=== PATIENT | male | born 2000 | race Caucasian/White ===

== ENCOUNTER 2019-08-13 22:13 | Emergency (ER) | payer OTHER ==
[~2019-08-13] VITALS: Ht 167.6 cm; Wt 81.8 kg
[2019-08-14] MEDS ORDERED: GI COCKTAIL 50ML BTL(HYOSCYAMINE/MAALOX/LIDOCAINE VISCOUS)(1:3:1) PO ONE (00:45)
[2019-08-14] MEDS ORDERED: ONDANSETRON 4 MG ORAL DISINTEGRATING TAB (Q0162 PER 1MG) PO ONE (00:45)
[2019-08-14] MEDS ORDERED: AUGMENTIN 875 MG TAB PO ONE (00:45)
[2019-08-14] MEDS ORDERED: AUGM875T28 PO (01:07)
[2019-08-14 01:15] VITALS: BP 122/82
== END 2019-08-14 01:18 | disposition home or self-care (01) ==
LOC: M ED 22:13
DX: S61.431A Puncture wound without foreign body of right hand, initial encounter (principal); W55.01XA Bitten by cat, initial encounter; Y92.410 Unspecified street and highway as the place of occurrence of the external cause; R11.2 Nausea with vomiting, unspecified; R09.89 Other specified symptoms and signs involving the circulatory and respiratory systems; Z88.1 Allergy status to other antibiotic agents; Z88.2 Allergy status to sulfonamides
CPT/HCPCS: 99283; Q0162

== ENCOUNTER → 2020-11-04 | Outpatient (CLI) | payer OTHER ==
[~2020-11-04] MED LIST: AUGM875T28 PO; ISOVUE-300 61% 50ML VIAL As Ordered ONE; LIDOCAINE 1% MDV 20ML VIAL As Ordered ONE; TRIAMCINOLONE ACETONIDE SUSP 40 MG/ML VIAL (J3301) As Ordered ONE
--- NOTE | 2020-11-05 13:15 | REP ---
INDICATION: ISCHIOCAPSULAR LIGAMENT SPRAIN LT HIP. COMPARISON: None. TECHNIQUE: The procedure was performed under the direct supervision of Dr. De La Fuente. The benefits and risks including but not limited to pain infection and bleeding and anaphylaxis were explained to the patient and informed consent was obtained. The left femoral neck was localized using fluoroscopic guidance. The skin was prepped and draped in a sterile fashion. 1% lidocaine was used as a local anesthetic. Using fluoroscopic guidance, and last image hold technology, a 22-gauge spinal needle was inserted and advanced to the femoral neck. 0.5 ml of Isovue-300 was injected to verify placement. Ten ml of a solution containing 9 ml of 1% Xylocaine and 1 mL of Kenalog 40 mg was injected. The needle was then removed. The patient tolerated the procedure well and there were no immediate complications. Less than 6 seconds of fluoro time was utilized for this procedure. FINDINGS: None IMPRESSION: Fluoro guidance for left hip injection. <Electronically signed by Aldair Marley > 11/04/20 1795 <Electronically signed by Chu De La Fuente > 11/05/20 1313
== END ==
LOC: M RADPRO 10:15
PROVIDERS: ATTEND Physician Assistant Surgical
DX: S73.122D Ischiocapsular ligament sprain of left hip, subsequent encounter (principal)
CPT/HCPCS: 20610; 77002; J3301; Q9967

== ENCOUNTER → 2020-12-16 | Outpatient (CLI) | payer OTHER ==
[~2020-12-16] MED LIST changes: +CLAR1TAB13 PO; -ISOVUE-300 61% 50ML VIAL As Ordered ONE; -LIDOCAINE 1% MDV 20ML VIAL As Ordered ONE; +LUNE2TAB23 PO; +MUCI60TA7 PO; +QUET50TA4 PO; -TRIAMCINOLONE ACETONIDE SUSP 40 MG/ML VIAL (J3301) As Ordered ONE
[2020-12-16 14:07] LABS: BASO % 0.7 % (0.0-1.0); EOS # 0.2 10^3/uL (0.0-0.5); EOS % 3.5 % (0.0-3.0); HEMATOCRIT 42.1 % (42.0-52.0); HEMOGLOBIN 14.5 g/dl (13.5-17.5); LYMPH # 2.2 10^3/uL (1.5-5.0); LYMPH % 36.3 % (24.0-44.0); MEAN CORPUSCULAR HEMOGLOBIN 29.6 pg (27.0-33.0); MEAN CORPUSCULAR HGB CONC 34.4 g/dl (32.0-36.5); MEAN CORPUSCULAR VOLUME 85.9 fl (80.0-96.0); MONO # 0.5 10^3/uL (0.0-0.8); MONO % 7.7 % (2.0-8.0); NEUTROPHILS # 3.1 10^3/uL (1.5-8.5); NEUTROPHILS % 51.5 % (36.0-66.0); PLATELET COUNT, AUTOMATED 176 10^3/uL (150-450)
[2020-12-16 14:59] LABS: ALBUMIN 4.1 GM/DL (3.2-5.2); ALT/SGPT 26 U/L (12-78); BILIRUBIN,DIRECT 0.1 MG/DL (0.0-0.2); BILIRUBIN,TOTAL 0.4 MG/DL (0.2-1.0); BLOOD UREA NITROGEN 10 MG/DL (7-18); CALCIUM LEVEL 8.7 MG/DL (8.5-10.1); CARBON DIOXIDE LEVEL 26 MEQ/L (21-32); CHLORIDE LEVEL 105 MEQ/L (98-107); CREATININE FOR GFR 0.95 MG/DL (0.70-1.30); FOLATE 16.5 NG/ML; GLOMERULAR FILTRATION RATE > 60.0 (>60); GLUCOSE, FASTING 88 MG/DL (70-100); POTASSIUM SERUM 3.8 MEQ/L (3.5-5.1); SODIUM LEVEL 138 MEQ/L (136-145); TOTAL PROTEIN 7.2 GM/DL (6.4-8.2); VITAMIN B12 LEVEL 414 PG/ML
[2020-12-16 15:13] LABS: ERYTHROCYTE SEDIMENTATION RATE 3 mm/hr (0-15)
[2020-12-18 07:10] LABS: IGASUB2 174.8 mg/dL (73.2-301.2); IGASUB3 17.9 mg/dL (13.4-97.9); IgA SERUM (part of Subclasses) 222 mg/dL (90-386); TISSUE TRANSGLUTAMINASE IgA <2 U/mL (0-3)
== END ==
LOC: M LAB 13:23
PROVIDERS: ATTEND Internal Medicine Gastroenterology
DX: R10.9 Unspecified abdominal pain (principal)

== ENCOUNTER → 2020-12-16 | Outpatient (REF) | payer OTHER ==
[~2020-12-16] MED LIST changes: -CLAR1TAB13 PO; -LUNE2TAB23 PO; -MUCI60TA7 PO; -QUET50TA4 PO
== END ==
LOC: M LAB REF 13:39
PROVIDERS: ATTEND Internal Medicine Gastroenterology
DX: R19.7 Diarrhea, unspecified (principal); R10.9 Unspecified abdominal pain

== ENCOUNTER 2021-03-06 06:29 | Day surgery (SDC) | payer OTHER ==
[~2021-03-06] VITALS: Ht 167.6 cm; Wt 90.2 kg
[~2021-03-06 06:29] MED LIST changes: +CLAR1TAB13 PO; +NS 1,000 ML IV ONE; +QUET50TA4 PO
[2021-03-06] MEDS ORDERED: SIMETHICONE 40MG/0.6ML DROPS 30ML As Ordered ONE (06:44)
[2021-03-06] MEDS ORDERED: propofoL 200 MG/20 ML VIAL As Ordered ONE (07:37)
--- NOTE | 2021-03-06 08:08 | ROOR ---
Patient Name: Chiki Serrano Procedure Date: 03/06/2021 7:28 AM Date of : 2000 Age: 21 Room: [facility] Gender: Male Note Status: Finalized Procedure: Colonoscopy Indications: Chronic diarrhea Providers: Tai Marion MD Referring MD: GERRY GODDARD MD Requesting Provider: Medicines: Monitored Anesthesia Care Complications: No immediate complications. Procedure: Pre-Anesthesia Assessment: - Prior to the procedure, a History and Physical was performed, and patient medications and allergies were reviewed. The patient is competent. The risks and benefits of the procedure and the sedation options and risks were discussed with the patient. All questions were answered and informed consent was obtained. Patient identification and proposed procedure were verified by the physician, the nurse and the anesthesiologist in the procedure room. Mental Status Examination: alert and oriented. Airway Examination: normal oropharyngeal airway and neck mobility. Respiratory Examination: clear to auscultation. CV Examination: normal. Prophylactic Antibiotics: The patient does not require prophylactic antibiotics. Prior Anticoagulants: The patient has taken no previous anticoagulant or antiplatelet agents. ASA Grade Assessment: II - A patient with mild systemic disease. After reviewing the risks and benefits, the patient was deemed in satisfactory condition to undergo the procedure. The anesthesia plan was to use monitored anesthesia care (MAC). Immediately prior to administration of medications, the patient was re-assessed for adequacy to receive sedatives. The heart rate, respiratory rate, oxygen saturations, blood pressure, adequacy of pulmonary ventilation, and response to care were monitored throughout the procedure. The physical status of the patient was re-assessed after the procedure. The Colonoscope was introduced through the anus and advanced to the terminal ileum, with identification of the appendiceal orifice and IC valve. The colonoscopy was performed without difficulty. The patient tolerated the procedure well. The quality of the bowel preparation was good. The terminal ileum, ileocecal valve, appendiceal orifice, and rectum were photographed. Scope insertion time was 2 minutes. Scope withdrawal time was 9 minutes. The total duration of the procedure was 12 minutes. Findings: The perianal and digital rectal examinations were normal. The terminal ileum appeared normal. Two sessile polyps were found in the ascending colon. The polyps were 5 to 8 mm in size. These polyps were removed with a cold snare. Resection and retrieval were complete. Verification of patient identification for the specimen was done by the physician and nurse using the patient's name, date and medical record number. Estimated blood loss was minimal. Normal mucosa was found in the entire colon. Biopsies for histology were taken with a cold forceps from the right colon, left colon, transverse colon and rectosigmoid colon for evaluation of microscopic colitis. Non-bleeding external and internal hemorrhoids were found during retroflexion. The hemorrhoids were small. Impression: - The examined portion of the ileum was normal. - Two 5 to 8 mm polyps in the ascending colon, removed with a cold snare. Resected and retrieved. - Normal mucosa in the entire examined colon. Biopsied. - Non-bleeding external and internal hemorrhoids. Recommendation: - Patient has a contact number available for emergencies. The signs and symptoms of potential delayed complications were discussed with the patient. Return to normal activities tomorrow. Written discharge instructions were provided to the patient. - High fiber diet. - Continue present medications. - Await pathology results. - Repeat colonoscopy in 5-10 years for surveillance based on pathology results. - Telephone GI clinic for pathology results in 2 weeks. - Return to GI clinic if persistent symptoms or new symptoms. - Return to primary care physician. Procedure Code(s): --- Professional --- 19962, Colonoscopy, flexible; with removal of tumor(s), polyp(s), or other lesion(s) by snare technique 22546, 59, Colonoscopy, flexible; with biopsy, single or multiple Diagnosis Code(s): --- Professional --- K64.8, Other hemorrhoids K63.5, Polyp of colon K52.9, Noninfective gastroenteritis and colitis, unspecified CPT copyright 2019 [employer]. All rights reserved. The codes documented in this report are preliminary and upon orthopedic coder review may be revised to meet current compliance requirements. Tai Marion MD Tai Marion MD 03/06/2021 8:08:13 AM Electronically signed by Tai Marion MD Number of Addenda: 0 Note Initiated On: 03/06/2021 7:28 AM Estimated Blood Loss: Estimated blood loss was minimal.
[2021-03-06 08:19] VITALS: BP 124/54
== END 2021-03-06 08:21 | disposition home or self-care (01) ==
LOC: M OPP 06:29
PROVIDERS: ATTEND Internal Medicine Gastroenterology
DX: K63.5 Polyp of colon (principal); K52.9 Noninfective gastroenteritis and colitis, unspecified; K64.8 Other hemorrhoids; Z79.899 Other long term (current) drug therapy; Z88.1 Allergy status to other antibiotic agents; Z88.2 Allergy status to sulfonamides

== ENCOUNTER 2021-05-01 09:52 | Emergency (ER) | payer OTHER ==
[~2021-05-01] VITALS: Ht 167.6 cm; Wt 91.2 kg
[~2021-05-01 09:52] MED LIST changes: -NS 1,000 ML IV ONE
[2021-05-01] MEDS ORDERED: LUNE2TAB23 PO (09:59)
--- OUTSIDE RECORDS SUMMARY | 2021-05-01 10:04 | CCD | Continuity of Care Document ---
Author Author Software [employer]ware [employer], [employer] Organization Unknown Address Unknown Phone Unavailable Care Team Providers Care Patient Financial Specialist Name Role Phone Salena Jerry Unavailable Problems No Problem Information Available Allergies and Adverse Reactions No Allergy Information Available Medications No Medication Information Available Social History No Social History Information Available Tobacco smoking consumption unknown Male Results No Known Results No Result Information Available Vital Signs No Vital Observation Information Available Advance Directives HIPAA - Patient specified Unknown. Payers [facility] Number: [address] [facility] [address] [place] tel: CECILLE GARCIA [id number] [place] [address] tel:
--- OUTSIDE RECORDS SUMMARY | 2021-05-01 10:04 | CCD ---
Author Author [facility] Organization [facility] Address Unknown Phone Unavailable Care Team Providers Care Assistant Professor Of Education Name Role Phone MARILYN BROWNING Unavailable Unavailable HAYNES, E HAI PA Unavailable Unavailable HAYNES, E HAI PA Unavailable Unavailable HAYNES, E HAI PA Unavailable Unavailable HAYNES, E HAI PA Unavailable Unavailable HAYNES, E HAI PA Unavailable Unavailable HAYNES, E HAI PA Unavailable Unavailable HAYNES, E HAI PA Unavailable Unavailable HAYNES, E HAI PA Unavailable Unavailable HAYNES, E HAI PA Unavailable Unavailable HAYNES, E HAI PA Unavailable Unavailable HAYNES, E HAI PA Unavailable Unavailable HAYNES, E HAI PA Unavailable Unavailable HAYNES, E HAI PA Unavailable Unavailable HAYNES, E HAI PA Unavailable Unavailable HAYNES, E HAI PA Unavailable Unavailable HAYNES, E HAI PA Unavailable Unavailable HAYNES, E HAI PA Unavailable Unavailable HAYNES, E HAI PA Unavailable Unavailable Yuval CAN MD Unavailable Unavailable Yuval CAN MD Unavailable Unavailable Yuval CAN MD Unavailable Unavailable Yuval CAN MD Unavailable Unavailable Yuval CAN MD Unavailable Unavailable Yuval CAN MD Unavailable Unavailable Yuval CAN MD Unavailable Unavailable Yuval CAN MD Unavailable Unavailable Yuval CAN MD Unavailable Unavailable Yuval CAN MD Unavailable Unavailable Yuval CAN MD Unavailable Unavailable Yuval CAN MD Unavailable Unavailable Yuval CAN MD Unavailable Unavailable Yuval CAN MD Unavailable Unavailable Yuval CAN MD Unavailable Unavailable ADAIRRALYuval Martin MD Unavailable Unavailable ADAIRRALA K BECK BRENNAN Unavailable Unavailable ADAIRRALYuval Martin MD Unavailable Unavailable ADAIRRALYuval Martin MD Unavailable Unavailable ADAIRRALAYuval MD Unavailable Unavailable ADAIRRALA K BECK BRENNAN Unavailable Unavailable ADAIRRALA K BECK BRENNAN Unavailable Unavailable ADAIRRALA K BECK BRENNAN Unavailable Unavailable ADAIRRALA K BECK BRENNAN Unavailable Unavailable ADAIRRALA K BECK BRENNAN Unavailable Unavailable ADAIRRALA K BECK BRENNAN Unavailable Unavailable ADAIRRALA K BECK BRENNAN Unavailable Unavailable ADAIRRALA K BECK BRENNAN Unavailable Unavailable JUAN JOSÉ K BECK BRENNAN Unavailable Unavailable JUAN JOSÉ K BECK BRENNAN Unavailable Unavailable Yuval CAN MD Unavailable Unavailable JUAN JOSÉ K BECK BRENNAN Unavailable Unavailable Yuval CAN MD Unavailable Unavailable MALLILIA, DIANDRA Unavailable Unavailable Patti Covington MD Unavailable Unavailable Patti Covington MD Unavailable Unavailable Patti Covington MD Unavailable Unavailable Patti Covington MD Unavailable Unavailable Patti Covington MD Unavailable Unavailable Patti Covington MD Unavailable Unavailable Re-disclosure Warning The records that you are about to access may contain information from federally-assisted alcohol or drug abuse programs. If such information is present, then the following federally mandated warning applies: This information has been disclosed to you from records protected by federal confidentiality rules (42 CFR part 2). The federal rules prohibit you from making any further disclosure of this information unless further disclosure is expressly permitted by the written consent of the person to whom it pertains or as otherwise permitted by 42 CFR part 2. A general authorization for the release of medical or other information is NOT sufficient for this purpose. The Federal rules restrict any use of the information to criminally investigate or prosecute any alcohol or drug abuse patient.The records that you are about to access may contain highly sensitive health information, the redisclosure of which is protected by Article 27-F of the [facility] Public Health law. If you continue you may have access to information: Regarding HIV / AIDS; Provided by facilities licensed or operated by the [facility] Office of Mental Health; or Provided by the [facility] Office for People With Developmental Disabilities. If such information is present, then the following [facility] mandated warning applies: This information has been disclosed to you from confidential records which are protected by state law. State law prohibits you from making any further disclosure of this information without the specific written consent of the person to whom it pertains, or as otherwise permitted by law. Any unauthorized further disclosure in violation of state law may result in a fine or skilled nursing sentence or both. A general authorization for the release of medical or other information is NOT sufficient authorization for further disc losure. Allergies and Adverse Reactions Type Description Substance Reaction Status Data Source(s ) Drug allergy AZITHROMYCIN AZITHROMYCIN [facility] Propensity to adverse reactions SULFA (sulfonamide) SULFA (sulfonam [place]) [facility] Encounters Encounter Providers Location Date Indications Data Source(s ) Outpatient Attender: ALEXANDER BROWNING 04/16/2021 02:42:43 PM [facility] Outpatient Attender: ALEXANDER BROWNING 021 02:48:38 PM EDT - 03/12/2021 11:42:00 AM [facility] Patient discharged. Outpatient Attender: DIANDRA MURPHY 04:19:04 PM EDT - 02/06/2021 06:00:00 AM [facility] Patient discharged. Outpatient Attender: BECK Keys/Basil/Arias wilde/Allison 01/21/2021 08:30:00 AM EDT [facility] ([facility], ) Outpatient Attender: Carlos Covington MD 01/05 06:15:00 AM EDT - 01/05/2021 11:29:00 AM T [facility] Patient discharged. Outpatient Attender: Carlos Covington MD 12/30 06:23:16 AM EDT - 12/31/2020 08:50:00 AM [facility] Patient discharged. Outpatient Attender: BECK Keys/Basil/Arias wilde/Allison 12/09/2020 09:20:00 AM EDT [facility] ([facility], ) Outpatient Attender: HAI RODRIGUES 12:16:00 PM EDT - 10/23/2020 01:16:00 PM EDT [facility] Patient discharged. Immunizations Vaccine Date Status Description Data Source(s) COVID-19 VACCINE Moderna 10/17/2020 12:00:00 AM EDT completed NYIS Vaccine Series Complete: YESThis Data wa s Submitted to [facility] Via [employer]. COVID-19 VACCINE Moderna 09/19/2020 12:00:00 AM EDT completed NYSIIS Vaccine Series Complete: NOThis Data was Submitted to [facility] Via [employer]. Medications Medication Brand Name Start Date Product Form Dose Route Admi nistrative Instructions Pharmacy Instructions Status Indications Reaction Description Data Source(s) Bisacodyl 5 MG Delayed Release Oral Tablet [Dulcolax] Dulcol ax 01/21/2021 12:00:00 AM EDT active M [facility] ([facility], ) Suprep Bowel Prep Kit Suprep Bowel Prep Kit 01/21/2021 12:00:00 AM EDT active [facility] ([facility], ) Dicyclomine Hydrochloride 20 MG Oral Tablet Dicyclomine HCL 01/21/2021 12:00:00 AM EDT ORAL active [facility] ([facility], ) Insurance Providers Payer name Policy type / Coverage type Policy ID Covered republican ID Covered republican's relationship to rob Policy Rob Plan Information [employer] [id number] SP [id number] [employer] - O/P [id number] 18 [id number] Problems, Conditions, and Diagnoses Code Display Name Description Problem Type Effective Dates Data Source(s) Z5321 Procedure and treatment not carried out due to patient leaving prior to being seen by health care provider Procedure and treatment not carried out due to patient leaving prior to being seen by health care provider Diagnosis 03/12/2021 11:42:00 AM EDT [facility] G4700 Insomnia, unspecified Insomnia, unspecified Diagnosis 02/05/2021 08:30:00 PM EDT [facility] [id number] Snoring Snoring Diagnosis 02/05/2021 08:30:00 PM ED T [facility] 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, right shoulder P rimary osteoarthritis, right shoulder Diagnosis 01/05/2021 06:15:00 AM EDT [facility] M7541 Impingement syndrome of right shoulder I mpingement syndrome of right shoulder Diagnosis 01/05/2021 06:15:00 AM EDT [facility] [id number] Encounter for other preprocedural examin ation Encounter for other preprocedural examination Diagnosis 12/31/2020 08:05:00 AM EDT [facility] 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, 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, right shoulder Diagnosis 10/23/2020 12:16:00 PM E DT [facility] 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, 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, right hip Diagnosis 10/23/2020 12:16:00 PM EDT [facility] Surgeries/Procedures Procedure Description Date Indications Data Source(s) Colonoscopy Flexible Proximal To Splenic Flexure W/Biopsy Si ngle/ 03/06/2021 12:00:00 AM EDT [facility] ([facility]) Colonoscopy W/ Poly 03/06/2021 12:00:00 AM EDT [facility] ([facility]) OFFICE OUTPATIENT VISIT 25 MINUTES 01/21/2021 12:00:00 AM EDT [facility] ([facility]) OFFICE OUTPATIENT NEW 45 MINUTES 12/09/2020 12:00:00 A M EDT [facility]) Results ID Date Data Source [id number] 03/06/2021 07:50:00 AM EDT [facility]) Name Value Range Interpretation Code Description Data Veronica rce(s) Supporting Document(s) Surgical pathology study Laboratory test result [facility] ([facility]) FINAL DIAGNOSIS A - Colon, random biopsies: Fragments of benign colonic mucosa with a few prominent lymphoid aggregates of lamina propria. No inflammatory activity or evidence for microscopic colitis is noted. B - Colon, polyps, polypectomy: Hyperplastic polyp fragments. 03/09/2021 - 1157 CLINICAL DIAGNOSIS Chronic diarrhea, R/O irritable bowel disease 03/06/2021 - 1325 GROSS DIAGNOSIS A - Received in formalin labeled "random colon biopsies" is a 0.7 x 0.2 x 0.2 cm. aggregate of mucosal fragments. All in one. B - Received in formalin labeled "colon polyps" is a 0.6 x 0.3 x 0.2 cm. aggregate of mucosal fragments. All in one. 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 He had exam and clinical findings consistent with subacromial impingementand AC joint arthrosis. He had completed conservative measures and requested to avoid injectionsat all cost. He requested surgical intervention, and was counseled on the risks of surgery to include,but not limited to infection, bleeding, damage to local s tructures, pain, stiffness, need for furthersurgery. He was able to sign informed consent. All questions were answered to his full satisfaction.PRE-OP DIAGNOSIS: 1. Right shoulder subacromial impingement. 2. AC joint arthrosis.POST-OP DIAGNOSIS: 1. Right shoulder subacromial impingement. 2. AC joint arthrosis.MATERIAL FORWARDED: None.DESCRIPTION OF THE FINDINGS:Patient had an adequate decompressed subacromial space and then a distal clavicle resection wasdone all arthroscopic with a total of approximately 10 mm resection as measured directly throughthe scope.INFECTION CLASSIFICATION: I, clean.ESTIMATED BLOOD LOSS: 5 cc.OPERATION PERFORMED:Right shoulder arthroscopy with subacromial decompression and arthroscopic distal clavicleresection, and also examination under anesthesia.DESCRIPTION OF OPERATION: [address] [place] [address] OPERATIVE SUMMARYNAME: RADHA ODEN DATE OF : 2000ATTENDING PHYS: Carlos Covington MD DATE: 01/05/21 MR#: [id number] patient was met in the pre-op holding area, where the correct name, identity, operative site,laterality, and procedure were verified to be correct without discrepancies. The operative site wasmarked by myself. Patient received pre-operative block by Anesthesia. He was then taken to theoperating room by nursing and anesthesia providers, placed supine on the operating room table. Allbony prominences were padded in the standard fashion. He underwent general anesthetic andplacement of advanced airway without complication. He was then transitioned to the beach chairposition in standard fashion. The right upper extremity was cleaned with peroxide, and examinationunder anesthesia was completed. The patient's right upper extremity was then prepped and drapedin the usual sterile fashion. Time-out was then called, the patient's name, identity, operative site,laterality, and procedure were verified to be correct without discrepancies. We also confirmedantibiotic administration with weight-based Ancef within one hour of incision as well.The bony landmarks were marked and planned incisions were marked for the arthroscopy portals.Standard diagnostic arthroscopy of the glenohumeral joint was completed with the use of aposterior portal and a standard midline portal. The structures of the joint were unremarkable. Itransitioned then to the subacromial space. I performed a standard subacromial decompression withaccessory lateral portal. Once adequate decompression was completed, I was able to visualize thebursal side of the rotator cuff, which was intact.The AC joint was exposed using the Thermoablator and the sucker shaver. Once it was adequatelyexposed, a 4 mm barrel lana to resect no more than 10 mm of distal clavicle maintaining theposterior superior joint capsule. Adequate decompression of the acromioclavicular joint wasachieved, and the arthroscope was then removed from the shoulder. The incisions were then closedand sterile dressings applied. The patient was placed into a sling. He was then aroused fromanesthesia, having tolerated the procedure well without any complication.Post-operatively he will remain in a sling for 1-2 weeks or so, and then start slowly transitioning toincrease activities per the arthroscopic distal clavicle resection protocol. He received pre-opantibiotics. No post-op antibiotics were indicated. No post-op DVT chemoprophylaxis wasindicated. Patient will return to see us in 10-14 days for a wound check and will start with physicaltherapy before then. [address] [place] [address] OPERATIVE SUMMARYNAME: RADHA ODEN DATE OF : 2000ATTENDING PHYS: Carlos Covington MD DATE: 01/05/21 MR#: [id number]: Carlos Covington MD 01/05/21 09:23DT: NKECHI 01/06/21 07 :18DS: Carlos Covington MD 01/16/21 14:26 3 Name Value Range Interpretation Code Description Data Veronica rce(s) Supporting Document(s) ID Date Data Source [id number] 12/31/2020 11:49:00 AM EDT [facility] Name Value Range Interpretation Code Description Data Veronica rce(s) Supporting Document(s) SARS coronavirus 2 RNA Not Detected [facility] [place] This lab was ordered by [facility] and reported by [facility]. ID Date Data Source [id number] 12/16/2020 01:33:00 PM EDT [facility] ([facility], ) Name Value Range Interpretation Code Description Data Veronica rce(s) Supporting Document(s) C reactive protein [Mass/volume] in Serum or Plasma by High sensitivity method 0.30 mg/dL 0.00-0.30 Normal (applies to non-numeric results) [facility] ([facility], ) Erythrocyte sedimentation rate by Westergren method 3 mm/hr 0-15 Normal (applies to non-numeric results) [facility]) ID Date Data Source [id number] 12/16/2020 01:33:00 PM EDT [facility] ([facility]) Name Value Range Interpretation Code Description Data Veronica rce(s) Supporting Document(s) Folate 16.5 ng/mL Normal (applies to non-numeric resul ts) [facility] ([facility], ) FOLATE NORMAL RANGE NORMAL GREATER THAN 5.4 NG/ML INDETERMINATE 3.4-5.4 NG/ML DEFICIENT LESS THAN 3.4 NG/ML Vitamin B12 Level 414 pg/mL Normal (applies to non-numeri c results) [facility] ([facility]) VITAMIN B12 NORMAL RANGE NORMAL 247 - 911 PG/ML INDETERMINATE 211 - 246 PG/ML DEFICIENT LESS THAN 211 PG/ML ID Date Data Source [id number] 12/16/2020 01:33:00 PM EDT [facility] ([facility]) Name Value Range Interpretation Code Description Data Veronica rce(s) Supporting Document(s) IgA Serum (part of Subclasses) 222 mg/dL 90-386 N ormal (applies to non-numeric results) [facility] ([facility]) Igasub3 17.9 mg/dL 13.4-97.9 Normal (applies to non-numeric resul ts) [facility]) Igasub2 174.8 mg/dL 73.2-301.2 Normal (applies to non-numeric resu lts) [facility]) ID Date Data Source [id number] 12/16/2020 01:33:00 PM EDT [facility] ([facility]) Name Value Range Interpretation Code Description Data Veronica rce(s) Supporting Document(s) Tissue transglutaminase IgA Ab [Units/volume] in Serum Labor atory test result 0-3 Normal (applies to non-numeric results) [facility] ([facility]) Negative 0 - 3 Weak Positive 4 - 10 Positive >10 . Tissue Transglutaminase (tTG) has been identified as the endomysial antigen. Studies have demonstr- ated that endomysial IgA antibodies have over 99% specificity for gluten sensitive enteropathy. Performed at: RN - [facility] [address] [id number] Milling/Polishing Operator: Rosalie Cruz MD, Phone: [phone] Performed at: - [facility] [address] [id number] Milling/Polishing Operator: Carrington Quintanilla MD, Phone: [phone] ID Date Data Source [id number] 12/16/2020 01:33:00 PM EDT [facility] ([facility]) Name Value Range Interpretation Code Description Data Veronica rce(s) Supporting Document(s) Ast/Sgot 17 U/L 7-37 Normal (applies to non-numeric resul ts) [facility] ([facility]) Alt/SGPT 26 U/L 12-78 Normal (applies to non-numeric resul ts) [facility]) Alkaline Phosphatase 58 U/L 45-117 Normal (applies to non-num jessica results) [facility]) Bilirubin,Direct 0.1 mg/dL 0.0-0.2 Normal (applies to non-numeric results) [facility]) Bilirubin,Total 0.4 mg/dL 0.2-1.0 Normal (applies to non-numeric results) [facility]) Albumin 4.1 GM/DL 3.2-5.2 Normal (applies to non-numeric resul ts) [facility]) Total Protein 7.2 GM/DL 6.4-8.2 Normal (applies to non-numeric re sults) [facility]) Albumin/Globulin Ratio 1.3 Normal (applies to non-n umeric results) [facility]) ID Date Data Source [id number] 12/16/2020 01:33:[address] [facility]) Name Value Range Interpretation Code Description Data Veronica rce(s) Supporting Document(s) Glucose, Fasting 88 mg/dL 70-100 Normal (applies to non-numeric results) [facility] ([facility]) Blood Urea Nitrogen 10 mg/dL 7-18 Normal (applies to non-nume shannon results) [facility]) Creatinine For GFR 0.95 mg/dL 0.70-1.30 Normal (applies to non -numeric results) [facility] ([facility]) Sodium Level 138 meq/L 136-145 Normal (applies to non-numeric res ults) [facility]) Glomerular Filtration Rate Laboratory test result Normal (applies to non- numeric results) [facility]) <content>Units are mL/min/1.73 m2</content>
<content></content>
<content>Chronic Kidney Disease Staging per NKF:</content>
<content></content>
<content>Stage I & II GFR >=60 Normal to Mildly Decreased</content>
<content>Stage III GFR 30- 59 Moderately Decreased</content>
<content>Stage IV GFR 15-29 Severely Decreased</content>
<content>Stage V GFR <15 Very Little GFR Left</content>
<content>ESRD GFR <15 on SITE INTERPRETER</content>
<content></content> Potassium Serum 3.8 meq/L 3.5-5.1 Normal (applies to non-numeric results) [facility]) Carbon Dioxide Level 26 meq/L 21-32 Normal (applies to non-num jessica results) [facility]) Chloride Level 105 meq/L 98-107 Normal (applies to non-numeric r esults) [facility]) Anion Gap 7 meq/L 8-16 Below low normal [facility] ( [facility]) Calcium Level 8.7 mg/dL 8.5-10.1 Normal (applies to non-numeric re sults) [facility]) ID Date Data Source [id number] 12/16/2020 01:33:[address] [facility]) Name Value Range Interpretation Code Description Data Veronica rce(s) Supporting Document(s) White Blood Count 6.0 10 4.0-10.0 Normal (applies to non-numeri c results) [facility]) Red Blood Count 4.90 10 4.30-6.10 Normal (applies to non-numeric results) [facility]) Hematocrit 42.1 % 42.0-52.0 Normal (applies to non-numeric resul ts) [facility]) Hemoglobin 14.5 g/dL 13.5-17.5 Normal (applies to non-numeric resul ts) [facility]) Mean Corpuscular Volume 85.9 fl 80.0-96.0 Normal ( applies to non-numeric results) [facility] ) Mean Corpuscular HGB Conc 34.4 g/dL 32.0-36.5 Normal (applies to non-numeric results) [facility]) Mean Corpuscular Hemoglobin 29.6 pg 27.0-33.0 Norm al (applies to non-numeric results) [facility] ([facility]) Red Cell Distribution Width 12.0 % 11.5-14.5 Norm al (applies to non-numeric results) [facility]) Neutrophils % 51.5 % 36.0-66.0 Normal (applies to non-numeric re sults) [facility]) Platelet Count, Automated 176 10 150-450 Normal (applies to non-numeric results) [facility]) Eos % 3.5 % 0.0-3.0 Above high normal [facility] ([facility]) [place] % 7.7 % 2.0-8.0 Normal (applies to non-numeric resul ts) [facility]) Lymph % 36.3 % 24.0-44.0 Normal (applies to non-numeric resul ts) [facility]) Immature Granulocyte % 0.3 % 0-3.0 Normal (applies to non-n umeric results) [facility]) Baso % 0.7 % 0.0-1.0 Normal (applies to non-numeric resul ts) [facility]) Nucleated Red Blood Cell % 0.0 % 0-0 Normal (applies to n on-numeric results) [facility]) Neutrophils # 3.1 10 1.5-8.5 Normal (applies to non-numeric re sults) [facility]) Lymph # 2.2 10 1.5-5.0 Normal (applies to non-numeric resul ts) [facility]) [place] # 0.5 10 0.0-0.8 Normal (applies to non-numeric resul ts) [facility]) Eos # 0.2 10 0.0-0.5 Normal (applies to non-numeric resul ts) [facility] ([facility]) Baso # 0.0 10 0.0-0.2 Normal (applies to non-numeric resul ts) [facility]) ID Date Data Source [id number] 12/16/2020 12:00:[address] [facility]) Name Value Range Interpretation Code Description Data Veronica rce(s) Supporting Document(s) Gastrointestinal (GI) Panel Laboratory test result [facility] ([facility]) This Gastrointestinal PCR Panel detects the following bacteria, parasites and viruses: Campylobacter (jejuni, coli and upsaliensis), Clostridium difficile (toxin A/B), Plesiomonas shigelloides, Salmonella, Yersinia enterocolitica, Vibrio (parahaemolyticus, vulnificus and cholerae), Vibrio clolerae, Enteroaggregative E. coli (EAEC), Enteropathogenis E. coli (EPEC), Enterotoxigenic E. coli (ETEC) it/st, Shiga-like producing E. coli (STEC) stx1/stc2, E.coli O157, Shigella/Enteroinvasive E. coli (EIEC), Cryptosporidium, Cyclospora cayetanensis, Entamoeba histolytica, Giardia lamblia, Adenovirus F 40/41, Astrovirus, Norovirus GI/GII, Rotavirus A and Sapovirus (I, II, IV, V). One negative specimen does not rule out the possibility of a parasitic infection. NEGATIVE by MULTIPLEXED NUCLEIC ACID PCR ID Date Data Source [id number] 12/16/2020 12:00:00 PM EDT [facility] [place] Name Value Range Interpretation Code Description Data Veronica rce(s) Supporting Document(s) Fats Neutral Laboratory test result Normal (applies to non -numeric results) [facility] ([facility]) <content>Normal (<60 Droplets/HPF)</cont ent>
<content></content> Fats Total Laboratory test result Normal (applies to non-n umeric results) [facility] ([facility]) <content>Normal (<100 Droplets/HPF)</con tent>
<content></content> ID Date Data Source [id number] 12/16/2020 12:00:00 PM EDT [facility] Name Value Range Interpretation Code Description Data Veronica rce(s) Supporting Document(s) Lactoferrin [Presence] in Stool by Immunoassay Laboratory test r esult Abnormal (applies to non-numeric results) [facility] ([facility]) Calprotectin [Mass/mass] in Stool 122 ug/g 0-120 Above high no rmal [facility] ([facility]) <content>Concentration Interpretatio n Follow-Up</content>
<content><16 - 50 ug/g Normal None</content>
<content>>50 -120 ug/g Borderline Re-evaluate in 4-6 weeks</content>
<content>>120 ug/g Abnormal Repeat as clinically</content>
<content>indicated</content>
<content></content> Helicobacter pylori Ag [Presence] in Stool Laboratory test resul t Normal (applies to non-numeric results) [facility] Performed at: [facility] [address] [id number] Milling/Polishing Operator: Rosalie Cruz MD, Phone: [phone] Performed at: [facility] [address] [id number] Milling/Polishing Operator: Carrington Quintanilla MD, Phone: [phone] Elastase.pancreatic [Mass/mass] in Stool Laboratory test result Normal (applies to non-numeric results) [facility] <content>Result Units: ug Elast./g</cont ent>
<content>Severe Pancreatic Insufficiency: <100</content>
<content>Moderate Pancreatic Insufficiency: 100 - 200</content>
<content>Normal: >200</content>
<content></content> ID Date Data Source [id number] 10/24/2020 10:30:00 [place] [address] PHONE: [phone] FAX: [phone] Name .................. : RADHA ODEN Acct Number.................. : [id number] ROOM. ................. : MR Number ................... : [id number] Stay type ............. : O/P Discharge Date......... ... : 10/23/20 Admit Date ......... : 10/23/20 Admit Phys .................... : DALLAS IVEY Date of ....... : 2000 Family Phys ................... : UNKNOWN CO Phone .................. : [phone] Age ................................ : 20 Film# .................. .:[id number] Sex ................................. : M Unsigned transcriptions are preliminary reports and do not represent a medical or legal document INJECTION FOR SHOULDER ARTHRO [id number] COMPLETE:10/23/20 09:58 KBO 73323 Reason for Exam: R SHOULDER PAIN SHOULDER 1 VIEW RT [id number] COMPLETE:10/23/20 09:58 KBO 84183 Reason for Exam: R SHOULDER PAIN FLUOROSCOPIC EXAMINATION OF THE RIGHT SHOULDER FOR ARTHROGRAM: FINDINGS: The cell liner film shows no acute findings. PROCEDURE: The benefits and risks of the examination were discussed with the patient. The patient has given informed consent for the procedure. A time out was performed confirming the right shoulder is the proper shoulder for today's examination. The skin surface was marked using fluoroscopic guidance. The skin was prepped and dressed in normal sterile fashion. Superficial and deep Lidocaine administration was performed with a 25-gauge needle. A 22- gauge spinal needle was then placed and advanced under fluoroscopic guidance. The needle was passed into the joint space at which time iodinated contrast was administered to confirm proper placement. Approximately 5 cc of iodinated contrast was administered. Once the proper placement was confirmed, approximately 7 cc of 1:200 Gadolinium solution was administered. The needle was then removed. The skin was cleansed and bandaged. No complications were experienced during the procedure. Fluoroscopy time is 3 seconds and 3 images are obtained. Examination dictated by LILIA Conn. Examination was reviewed with Ras Askew MD, radiologist at the time of this dictation. Page [address] 2 [place] [address] PHONE: [phone] FAX: [phone] Name .......... ........ : RADHA ODEN Acct Number.................. : [id number] ROOM. ................. : Number ................... : [id number] Stay type ............. : O/P Discharge Date......... ... : 10/23/20 Admit Date ......... : 10/23/20 Admit Phys .................... : DALLAS IVEY Date of ....... : 2000 Family Phys ................... : UNKNOWN CO Phone .................. : [phone] Age ................................ : 20 Film# .................. .:[id number] Sex ................................. : M Unsigned transcriptions are preliminary reports and do not represent a medical or legal document INJECTION FOR SHOULDER ARTHRO [id number] COMPLETE:10/23/20 09:58 KBO 28588 Reason for Exam: R SHOULDER PAIN SHOULDER 1 [address] RT [id number] COMPLETE:10/23/20 09:58 KBO 61208 Reason for Exam: R SHOULDER PAIN Electronically Reviewed and Signed By Ras Askew MD , 10/24/20 10:31, AML Transcribe Initials: SHANAE , Transcribe Date: 10/24/20 00:47, Dictation Date: Copy for: DALLAS VALLES Copy for: [address] [place] [address] REC Page 2 of 2 Name Value Range Interpretation Code Description Data Veronica rce(s) Supporting Document(s) ID Date Data Source [id number] 10/24/2020 10:29:00 AM EDT [facility] [address] [place] [address] PHONE: [phone] FAX: [phone] Name .................. : RADHA ODEN Acct Number.................. : [id number] ROOM. ................. : Number ................... : [id number] Stay type ............. : O/P Discharge Date......... ... : Admit Date ......... : Admit Phys .................... : DALLAS IVEY Date of ....... : 2000 Family Phys ................... : UNKNOWN CO Phone .................. : [phone] Age ................................ : 20 Film# .................. .:[id number] Sex ................................. : M Unsigned transcriptions are preliminary reports and do not represent a medical or legal document MRI UPPER EXT JOINT W CONT RT [id number] COMPLETE:10/23/20 09:11 50513 Reason for Exam: R SHOUL ARELIS PAIN MRI OF THE RIGHT SHOULDER WITH CONTRAST: TECHNIQUE: Multisequence, multiplanar MRI of the right shoulder is obtained following fluoroscopic-guided contrast arthrography. COMPARISON: None available. FINDINGS: There is increased signal in the distal supraspinatus muscle difficult to further evaluate on the current study as this study is performed for evaluation of labral tears. Consider full diagnostic imaging if clinically warranted. There is no full thickness tear of the rotator cuff tendons. There does appear to be increased signal throughout the subscapularis tendon, which appears to be related to atrophy but again, consider full diagnostic imaging if clinically warranted. There is a small tear of the superior posterior glenoid labrum. The anterior superior glenoid labrum appears intact. The biceps anchor does appear to be intact. IMPRESSION: Findings consistent with a small tear of the posterior superior glenoid labrum. Apparent atrophy of the subscapularis tendon. Consider full diagnostic imaging of the shoulder if clinically warranted. Electronically Reviewed and Signed By Ras Askew MD , 10/24/20 10:29, AML Transcribe Initials: SHANAE , Transcribe Date: 10/23/20 11:35, Dictation Date: Copy for: DALLAS VALLES Copy for: [address] [place] [address] REC Page 1 of 1 Name Value Range Interpretation Code Description Data Veronica rce(s) Supporting Document(s) ID Date Data Source [id number] 10/24/2020 10:30:00 AM EDT [facility] [address] [place] [address] PHONE: [phone] FAX: [phone] Name .................. : RADHA ODEN Acct Number.................. : [id number] ROOM. ................. : MR Number ................... : [id number] Stay type ............. : O/P Discharge Date......... ... : 10/23/20 Admit Date ......... : 10/23/20 Admit Phys .................... : DALLAS IVEY Date of ....... : 2000 Family Phys ................... : UNKNOWN CO Phone .................. : [phone] Age ................................ : 20 Film# .................. .:[id number] Sex ................................. : M Unsigned transcriptions are preliminary reports and do not represent a medical or legal document INJECTION FOR SHOULDER ARTHRO [id number] COMPLETE:10/23/20 09:58 KBO 28040 Reason for Exam: R SHOULDER PAIN SHOULDER 1 VIEW RT [id number] COMPLETE:10/23/20 09:58 KBO 33116 Reason for Exam: R SHOULDER PAIN FLUOROSCOPIC EXAMINATION OF THE RIGHT SHOULDER FOR ARTHROGRAM: FINDINGS: The cell liner film shows no acute findings. PROCEDURE: The benefits and risks of the examination were discussed with the patient. The patient has given informed consent for the procedure. A time out was performed confirming the right shoulder is the proper shoulder for today's examination. The skin surface was marked using fluoroscopic guidance. The skin was prepped and dressed in normal sterile fashion. Superficial and deep Lidocaine administration was performed with a 25-gauge needle. A 22- gauge spinal needle was then placed and advanced under fluoroscopic guidance. The needle was passed into the joint space at which time iodinated contrast was administered to confirm proper placement. Approximately 5 cc of iodinated contrast was administered. Once the proper placement was confirmed, approximately 7 cc of 1:200 Gadolinium solution was administered. The needle was then removed. The skin was cleansed and bandaged. No complications were experienced during the procedure. Fluoroscopy time is 3 seconds and 3 images are obtained. Examination dictated by LILIA Conn. Examination was reviewed with Ras Askew MD, radiologist at the time of this dictation. [address] [place] [address] PHONE: [phone] FAX: [phone] Name .......... ........ : RADHA ODEN Acct Number.................. : [id number] ROOM. ................. : MR Number ................... : [id number] Stay type ............. : O/P Discharge Date......... ... : 10/23/20 Admit Date ......... : 10/23/20 Admit Phys .................... : DALLAS IVEY Date of ....... : 2000 Family Phys ................... : UNKNOWN CO Phone .................. : [phone] Age ................................ : 20 Film# .................. .:[id number] Sex ................................. : M Unsigned transcriptions are preliminary reports and do not represent a medical or legal document INJECTION FOR SHOULDER ARTHRO [id number] COMPLETE:10/23/20 09:58 KBO 36705 Reason for Exam: R SHOULDER PAIN SHOULDER 1 VIEW RT [id number] COMPLETE:10/23/20 09:58 KBO 31504 Reason for Exam: R SHOULDER PAIN Electronically Reviewed and Signed By Ras Askew MD , 10/24/20 10:31, AML Transcribe Initials: DZ , Transcribe Date: 10/24/20 00:47, Dictation Date: Copy for: DALLAS VALLES Copy for: [facility] REC Page 2 of 2 Name Value Range Interpretation Code Description Data Veronica rce(s) Supporting Document(s) ID Date Data Source [id number] 08/25/2020 10:03:00 AM EDT [facility] Name Value Range Interpretation Code Description Data Veronica rce(s) Supporting Document(s) SARS coronavirus 2 RNA Not Detected [facility] This lab was ordered by [facility] and reported by [facility]. Procedure Social History No Information Vital Signs ID Date Data Source UNK Name Value Range Interpretation Code Description Data Source(s) Body weight 86.184 kg 86.184 kg [facility] ([facility]) Body surface area Derived from formula 1.96 m2 1.96 m2 [facility]) Diastolic blood pressure 74 mm[Hg] 74 mm[Hg] [facility] ([facility]) Systolic blood pressure 132 mm[Hg] 132 mm[Hg] [facility] Body height 66 [in_i] 66 [in_i] [facility] ([facility]) 5'6" Body weight 190.00 [lb_av] 190.00 [lb_av] [facility] ([facility]) Body mass index (BMI) [Ratio] 30.7 kg/m2 30.7 k g/m2 [facility] ([facility]) [place] body weight 142 [lb_av] 142 [lb_av] [facility] ([facility]) [place] body weight 142 [lb_av] 142 [lb_av] [facility] ([facility]) Systolic blood pressure 132 mm[Hg] 132 mm[Hg] [facility] Body mass index (BMI) [Ratio] 30.7 kg/m2 30.7 k g/m2 [facility] ([facility]) Body surface area Derived from formula 1.96 m2 1.96 m2 [facility] ([facility]) Diastolic blood pressure 74 mm[Hg] 74 mm[Hg] [facility] ([facility]) Body weight 86.184 kg 86.184 kg [facility] ([facility]) Body height 66 [in_i] 66 [in_i] [facility] ([facility]) 5'6" Body weight 190.00 [lb_av] 190.00 [lb_av] [facility] ([facility]) ID Date Data Source [id number] 02/12/2021 02:24:54 PM EDT [facility] Name Value Range Interpretation Code Description Data Source(s) WEIGHT RECORDED 190.00 pounds 190.00 pounds [facility] Height 66 Inches 066 Inches [facility]
--- OUTSIDE RECORDS SUMMARY | 2021-05-01 10:04 | CCD | Continuity of Care Document ---
Author Author Chiki CAN M.D. Organization Unknown Address [address] [facility] [facility], [address] [place] [address] Phone [phone] Care Team Providers Care Utility Technician Name Role Phone Bernabe Blanca AUTM [phone] Problems Description No Information Available Social History Type Date Description Comments Sex Unknown ETOH Use drinks on weekends Tobacco Use Start: Unknown Vape-1pod q2d Allergies and adverse reactions Active Allergies Criticality Reaction | Severity Comments Date Sulfa Unable to assess criticality 12/09/2020 Erythromycin Unable to assess criticality 01/21/2021 Medications Active Medications SIG Qnty Indications Ordering Provide r Date Dicyclomine HCL 20mg Tablets take 1 tablet by mouth 2 to 3 times daily, take atleast 15 minutes before meals (for diarrhea and abdominal cramps) 90tabs R19.7 Tai Can M.D. 01/21/2021 Suprep Bowel Prep Kit 17.5-3.13-1.6GM/177ML Solution use as directed for the colonoscopy prep aration. ( if not fully covered by insurance, please fill gavilyte script). 354ml R19.7 Tai Can M.D. 01/21/[address] take 4 tablets together as per bowel preparation instructions. 4tabs R19.7 Tai Can M.D. 01/21/2021 Claritin qd Unknown Prozac qd Unknown Omeprazole 40mg Capsules DR 1 by mouth every day Unknown Immunizations Description No Information Available Vital Signs Date Vital Result Comment 01/21/2021 9:07am BP Systolic 132 mmHg BP Diastolic 74 mmHg Height 66 inches 5'6" Weight 190.00 lb BMI (Body Mass Index) 30.7 kg/m2 [place] Body Weight 142 lb Weight 86.184 kg BSA (Body Surface Area) 1.96 m2 12/09/2020 10:09am BP Systolic 132 mmHg BP Diastolic 74 mmHg Height 66 inches 5'6" Weight 190.00 lb BMI (Body Mass Index) 30.7 kg/m2 [place] Body Weight 142 lb Weight 86.184 kg BSA (Body Surface Area) 1.96 m2 Results Test Acquired Date Facility Test Result H/L Range Note Laboratory test finding 03/06/2021 [facility] [address] [place] [address] [phone] Pathology Request For Service (SEE NOTE) 1 CBC With Differential 12/16/2020 [facility] [address] [place] [address] [phone] White Blood Count 6.0 10 Normal 4.0-10.0 Red Blood Count 4.90 10 Normal 4.30-6.10 Hemoglobin 14.5 g/dL Normal 13.5-17.5 Hematocrit 42.1 % Normal 42.0-52.0 Mean Corpuscular Volume 85.9 fl Normal 80.0-96.0 Mean Corpuscular Hemoglobin 29.6 pg Normal 27.0-33.0 Mean Corpuscular HGB Conc 34.4 g/dL Normal 32.0-36.5 Red Cell Distribution Width 12.0 % Normal 11.5-14.5 Platelet Count, Automated 176 10 Normal 150-450 Neutrophils % 51.5 % Normal 36.0-66.0 Lymph % 36.3 % Normal 24.0-44.0 [place] % 7.7 % Normal 2.0-8.0 Eos % 3.5 % High 0.0-3.0 Baso % 0.7 % Normal 0.0-1.0 Immature Granulocyte % 0.3 % Normal 0-3.0 Nucleated Red Blood Cell % 0.0 % Normal 0-0 Neutrophils # 3.1 10 Normal 1.5-8.5 Lymph # 2.2 10 Normal 1.5-5.0 [place] # 0.5 10 Normal 0.0-0.8 Eos # 0.2 10 Normal 0.0-0.5 Baso # 0.0 10 Normal 0.0-0.2 Basic Metabolic Profile 12/16/2020 [facility] [address] [place] [address] [phone] Glucose, Fasting 88 mg/dL Normal 70-100 Blood Urea Nitrogen 10 mg/dL Normal 7-18 Creatinine For GFR 0.95 mg/dL Normal 0.70-1.30 Glomerular Filtration Rate > 60.0 Normal >60 2 Sodium Level 138 mEq/L Normal 136-145 Potassium Serum 3.8 mEq/L Normal 3.5-5.1 Chloride Level 105 mEq/L Normal 98-107 Carbon Dioxide Level 26 mEq/L Normal 21-32 Anion Gap 7 mEq/L Low 8-16 Calcium Level 8.7 mg/dL Normal 8.5-10.1 Liver Profile 12/16/2020 [facility] [address] [place] [address] [phone] Ast/Sgot 17 U/L Normal 7-37 Alt/SGPT 26 U/L Normal 12-78 Alkaline Phosphatase 58 U/L Normal 45-117 Bilirubin,Total 0.4 mg/dL Normal 0.2-1.0 Bilirubin,Direct 0.1 mg/dL Normal 0.0-0.2 Total Protein 7.2 GM/DL Normal 6.4-8.2 Albumin 4.1 GM/DL Normal 3.2-5.2 Albumin/Globulin Ratio 1.3 Normal Laboratory test finding 12/16/2020 [facility] [address] [place] [address] [phone] Tissue Transglutaminase IgA <2 U/mL Normal 0-3 3 Iga Subclasses 12/16/2020 [facility] [address] [place] [address] [phone] IgA Serum (part of Subclasses) 222 mg/dL Normal 9 0-386 Igasub2 174.8 mg/dL Normal 73.2-301.2 Igasub3 17.9 mg/dL Normal 13.4-97.9 Vitamin B12 & Folate 12/16/2020 [facility] [address] [place] [address] [phone] Vitamin B12 Level 414 pg/mL Normal 4 Folate 16.5 NG/ML Normal 5 Laboratory test finding 12/16/2020 [facility] [address] [place] [address] [phone] Erythrocyte Sedimentation Rate 3 mm/hr Normal 0 -15 C Reactive Protein Quantitativ 0.30 mg/dL Normal 0.00-0.30 Laboratory test finding 12/16/2020 [facility] [address] [place] [address] [phone] Stool Lactoferrin-polys by Ica POSITIVE Abnormal 6 Calprotectin Stool 122 ug/g High 0-120 7 H Pylori Stool Antigen Negative Normal Negative 8 Pancreatic Elastase Stool >500 Normal >200 9 Fat Fecal Qualitative 12/16/2020 [facility] [address] [place] [address] [phone] Fats Neutral Normal Normal . 10 Fats Total Normal Normal . 11 Gastrointestinal (GI) Panel 12/16/2020 [facility] [address] [place] [address] [phone] Gastrointestinal (GI) Panel This Gastrointes <SEE NOTE > 12 1 FINAL DIAGNOSIS A - Colon, random biopsies: Fragments of benign colonic mucosa with a few prominent lymphoid aggregates of lamina propria. No inflammatory activity or evidence for microscopic colitis is noted. B - Colon, polyps, polypectomy: Hyperplastic polyp fragments. 03/09/2021 - 1157 CLINICAL DIAGNOSIS Chronic diarrhea, R/O irritable bowel disease 03/06/2021 - 1324 GROSS DIAGNOSIS A - Received in formalin labeled "random colon biopsies" is a 0.7 x 0.2 x 0.2 cm. aggregate of mucosal fragments. All in one. B - Received in formalin labeled "colon polyps" is a 0.6 x 0.3 x 0.2 cm. aggregate of mucosal fragments. All in one. - 03/06/2021 - 1324 Signed Sybil Layton MD 03/09/2021 1240 2 Units are mL/min/1.73 m2 Chronic Kidney Disease Staging per NKF: Stage I & II GFR >=60 Normal to Mildly Decreased Stage III GFR 30-59 Moderately Decreased Stage IV GFR 15-29 Severely Decreased Stage V GFR <15 Very Little GFR Left ESRD GFR <15 on DOPE WORKER 3 Negative 0 - 3 Weak Positive 4 - 10 Positive >10 . Tissue Transglutaminase (tTG) has been identified as the endomysial antigen. Studies have demonstr- ated that endomysial IgA antibodies have over 99% specificity for gluten sensitive enteropathy. Performed at: [address] [id number] Ammonium Nitrate Neutralizer: Rosalie Cruz MD, Phone: [phone] Performed at: [address] [id number] Ammonium Nitrate Neutralizer: Carrington Quintanilla MD, Phone: [phone] VITAMIN B12 NORMAL RANGE NORMAL 247 - 911 PG/ML INDETERMINATE 211 - 246 PG/ML DEFICIENT LESS THAN 211 PG/ML 5 FOLATE NORMAL RANGE NORMAL GREATER THAN 5.4 NG/ML INDETERMINATE 3.4-5.4 NG/ML DEFICIENT LESS THAN 3.4 NG/ML 6 7 Concentration Interpreta tion Follow-Up <16 - 50 ug/g Normal None >50 -120 ug/g Borderline Re-evaluate in 4-6 weeks >120 ug/g Abnormal Repeat as clinically indicated 8 Performed at: [address] [id number] Ammonium Nitrate Neutralizer: Rosalie Cruz MD, Phone: [phone] Performed at: [address] [id number] Ammonium Nitrate Neutralizer: Carrington Quintanilla MD, Phone: [phone] Result Units: ug Elast./g Severe Pancreatic Insufficiency: <100 Moderate Pancreatic Insufficiency: 100 - 200 Normal: >200 10 Normal (<60 Droplets/HPF) 11 Normal (<100 Droplets/HPF) 12 This Gastrointestinal PCR Pa ella detects the following bacteria, parasites and viruses: [...] infection. NEGATIVE by MULTIPLEXED NUCLEIC ACID PCR Procedures Date Code Description Status 03/06/2021 63061 Colonoscopy W/ Poly Completed 03/06/2021 25956 Colonoscopy Flexible Proximal To Splenic Flexure W/Biopsy Single/ Completed 01/21/2021 95183 Office/Outpatient Established Mo d MDM 30-39 Min Completed 12/09/2020 56658 Office/Outpatient New Moderate M DM 45-59 Minutes Completed Medical Devices Description No Information Available Encounters Type Date Location Provider Dx Diagnosis Office Visit 01/21/2021 8:30a [facility] sage Can M.D. R19.7 Diarrhea, unspecified R10.30 Lower abdominal pain, unspec ified Office Visit 12/09/2020 9:20a [facility] Estefany Can M.D. R10.30 Lower abdominal pain, unspec ified R14.0 Abdominal distension (gaseou s) R19.7 Diarrhea, unspecified R11.2 Nausea with vomiting, unspec ified Assessments Date Code Description Provider 03/06/2021 K52.9 Noninfective gastroenteritis and colitis, unspecified Tai Can M.D. 03/06/2021 K63.5 Polyp of colon Tai Castillo ala, M.D. 03/06/2021 K64.8 Other hemorrhoids Tai drake M.D. 01/21/2021 R19.7 Diarrhea, unspecified Tai Can M.D. 01/21/2021 R10.30 Lower abdominal pain, unspecifie d Tai Can M.D. 12/09/2020 R10.30 Lower abdominal pain, unspecifie d Tai Can M.D. 12/09/2020 R14.0 Abdominal distension (gaseous) C magdy Can M.D. 12/09/2020 R19.7 Diarrhea, unspecified Tai Can M.D. 12/09/2020 R11.2 Nausea with vomiting, unspecifie d Tai Can M.D. Plan of Treatment Future Appointment(s):* 03/11/2021 2:35 pm - Tai Can M.D. at [facility] Functional Status Description No Information Available Mental Status Description No Information Available Referrals Refer to Dr Reason for Referral Status Appt Date Tai Can M.D. OFFICE CONSULT NEW OR ESTAB LISHED PT. - - 09/25/2020 - 03/24/2021 OFFICE/OUTPATIENT ESTABLISHED MINIMAL - 09/25/2020 - 09/25/2021 DX: UNSPECIFIED ABDOMINAL PAIN Scheduled 12/10/19 21 [facility] [address] [facility], [address] [place] [address] [phone]
--- OUTSIDE RECORDS SUMMARY | 2021-05-01 10:04 | CCD | Continuity of Care Document ---
Author Author Chiki CAN M.D. Organization Unknown Address [address], [address] [place] [address] Phone [phone] Care Team Providers Care Form Setter Supervisor Name Role Phone Bernabe Blanca AUTM [phone] Problems Description No Information Available Social History Type Date Description Comments Sex Unknown ETOH Use drinks on weekends Tobacco Use Start: Unknown Vape-1pod q2d Allergies, Adverse Reactions, Alerts Active Allergies Criticality Reaction | Severity Comments [...] lb BMI (Body Mass Index) 30.7 kg/m2 [place] Body Weight 142 lb Weight 86.184 kg BSA (Body Surface Area) 1.96 m2 12/09/2020 10:09am BP Systolic 132 mmHg BP Diastolic 74 mmHg Height 66 inches 5'6" Weight 190.00 lb BMI (Body Mass Index) 30.7 kg/m2 [place] Body Weight 142 lb Weight 86.184 kg BSA (Body Surface Area) 1.96 m2 Results Test Acquired Date Facility Test Result H/L Range Note CBC With Differential 12/16/2020 [facility] [address] [place] [address] [phone] White Blood Count 6.0 10 Normal 4.0-10.0 [...] 36.0-66.0 Lymph % 36.3 % Normal 24.0-44.0 [place] % 7.7 % Normal 2.0-8.0 Eos % 3.5 % High 0.0-3.0 Baso % 0.7 % Normal 0.0-1.0 Immature Granulocyte % 0.3 % Normal 0-3.0 Nucleated Red Blood Cell % 0.0 % Normal 0-0 Neutrophils # 3.1 10 Normal 1.5-8.5 Lymph # 2.2 10 Normal 1.5-5.0 [place] # 0.5 10 Normal 0.0-0.8 Eos # 0.2 10 Normal 0.0-0.5 Baso # 0.0 10 Normal 0.0-0.2 Basic Metabolic Profile 12/16/2020 [facility] [address] [place], [place] [id number] [phone] Glucose, Fasting 88 mg/dL Normal 70-100 Blood Urea Nitrogen 10 mg/dL Normal 7-18 Creatinine For GFR 0.95 mg/dL Normal 0.70-1.30 Glomerular Filtration Rate > 60.0 Normal >60 1 Sodium Level 138 mEq/L Normal 136-145 Potassium Serum 3.8 mEq/L Normal 3.5-5.1 Chloride Level 105 mEq/L Normal 98-107 Carbon Dioxide Level 26 mEq/L Normal 21-32 Anion Gap 7 mEq/L Low 8-16 Calcium Level 8.7 mg/dL Normal 8.5-10.1 Liver Profile 12/16/2020 [facility] [address] [place] [address] [phone] Ast/Sgot 17 U/L Normal 7-37 Alt/SGPT 26 U/L Normal 12-78 Alkaline Phosphatase 58 U/L Normal 45-117 Bilirubin,Total 0.4 mg/dL Normal 0.2-1.0 Bilirubin,Direct 0.1 mg/dL Normal 0.0-0.2 Total Protein 7.2 GM/DL Normal 6.4-8.2 Albumin 4.1 GM/DL Normal 3.2-5.2 Albumin/Globulin Ratio 1.3 Normal Laboratory test finding 12/16/2020 [facility] [address] [place] [address] [phone] Tissue Transglutaminase IgA <2 U/mL Normal 0-3 2 Iga Subclasses 12/16/2020 [facility] [address] [place] [address] [phone] IgA Serum (part of Subclasses) 222 mg/dL Normal 9 0-386 Igasub2 174.8 mg/dL Normal 73.2-301.2 Igasub3 17.9 mg/dL Normal 13.4-97.9 Vitamin B12 & Folate 12/16/2020 [facility] [address] [place] [address] [phone] Vitamin B12 Level 414 pg/mL Normal 3 Folate 16.5 NG/ML Normal 4 Laboratory test finding 12/16/2020 [facility] [address] [place] [address] [place] [address] [phone] Erythrocyte Sedimentation Rate 3 mm/hr Normal 0 -15 C Reactive Protein Quantitativ 0.30 mg/dL Normal 0.00-0.30 Laboratory test finding 12/16/2020 [facility] Lab [address] [place], [place] [phone] Stool Lactoferrin-polys by Ica POSITIVE Abnormal 5 Calprotectin Stool 122 ug/g High 0-120 6 H Pylori Stool Antigen Negative Normal Negative 7 Pancreatic Elastase Stool >500 Normal >200 8 Fat Fecal Qualitative 12/16/2020 [facility] [address] [place] [address] [phone] Fats Neutral Normal Normal . 9 Fats Total Normal Normal . 10 Gastrointestinal (GI) Panel 12/16/2020 [facility] [address] [place] [address] [phone] Gastrointestinal (GI) Panel This Gastrointes <SEE NOTE > 11 1 Units are mL/min/1.73 m2 Chronic Kidney Disease Staging per NKF: Stage I & II GFR >=60 Normal to Mildly Decreased Stage III GFR 30-59 Moderately Decreased Stage IV GFR 15-29 Severely Decreased Stage V GFR <15 Very Little GFR Left ESRD GFR <15 on BROADCAST JOURNALIST 2 Negative 0 - 3 Weak Positive 4 - 10 Positive >10 . Tissue Transglutaminase (tTG) has been identified as the endomysial antigen. Studies have demonstr- ated that endomysial IgA antibodies have over 99% specificity for gluten sensitive enteropathy. Performed at: RN - [facility] [address] [id number] Self [employer]ained [employer] Unit Teacher: Rosalie Cruz MD, Phone: [phone] Performed at: - [facility] [address] [id number] Self Contained Behavior Unit Teacher: Carrington Quintanilla MD, Phone: [phone] VITAMIN B12 NORMAL RANGE NORMAL 247 - 911 PG/ML INDETERMINATE 211 - 246 PG/ML DEFICIENT LESS THAN 211 PG/ML 4 FOLATE NORMAL RANGE NORMAL GREATER THAN 5.4 NG/ML INDETERMINATE 3.4-5.4 NG/ML DEFICIENT LESS THAN 3.4 NG/ML 5 6 Concentration Interpreta tion Follow-Up <16 - 50 ug/g Normal None >50 -120 ug/g Borderline Re-evaluate in 4-6 weeks >120 ug/g Abnormal Repeat as clinically indicated 7 Performed at: [facility] [address] [id number] Self Contained Behavior Unit Teacher: Rosalie Cruz MD, Phone: [phone] Performed at: [facility] [address] [id number] Self Contained Behavior Unit Teacher: Carrington Quintanilla MD, Phone: [phone] Result Units: ug Elast./g Severe Pancreatic Insufficiency: <100 Moderate Pancreatic Insufficiency: 100 - 200 Normal: >200 9 Normal (<60 Droplets/HPF) 10 Normal (<100 Droplets/HPF) 11 This Gastrointestinal PCR Pa ella detects the [...] ACID PCR Procedures Date Code Description Status 01/21/2021 13990 Office/Outpatient Established Mo d MDM 30-39 Min Completed 12/09/2020 76057 Office/Outpatient New Moderate M DM 45-59 Minutes Completed Medical Devices Description No Information Available Encounters Type Date Location Provider Dx Diagnosis Office Visit 01/21/2021 8:30a [facility] sage Can M.D. R19.7 Diarrhea, unspecified R10.30 Lower abdominal pain, unspec ified Office Visit 12/09/2020 9:20a [facility] ctice Tai Can M.D. R10.30 Lower abdominal pain, unspec ified R14.0 Abdominal distension (gaseou s) R19.7 Diarrhea, unspecified R11.2 Nausea with vomiting, unspec ified Assessments Date Code Description Provider 01/21/2021 R19.7 Diarrhea, unspecified Tai Can M.D. [...] 2:35 pm - Tai Can M.D. at [facility] * 03/06/2021 12:55 pm - Tai Can M.D. at [facility] Functional Status Description No Information Available Mental Status Description No Information Available Referrals Refer to Dr Reason for Referral Status Appt Date Tai Can M.D. OFFICE CONSULT NEW OR ESTAB LISHED PT. - - 09/25/2020 - 03/24/2021 OFFICE/OUTPATIENT ESTABLISHED MINIMAL - - 09/25/2020 - 09/25/2021 DX: UNSPECIFIED ABDOMINAL PAIN Scheduled 12/10/19 21 [facility] [address], [address] [place] [address] [phone]
[2021-05-01 10:51] LABS: RSV AMPLIFICATION POSITIVE (NEGATIVE)
--- NOTE | 2021-05-01 14:29 | REP ---
INDICATION: chest congestion/RSV + COMPARISON: None. TECHNIQUE: PA and lateral. FINDINGS: The mediastinum and cardiac silhouette are normal. The lung amezcua are clear and without acute consolidation, effusion, or pneumothorax. The skeletal structures are intact and normal. IMPRESSION: No acute cardiopulmonary process. <Electronically signed by Tee Shah > 05/01/21 [id number]
[2021-05-01 14:41] LABS: BASO # 0.1 10^3/uL (0.0-0.2); BASO % 0.5 % (0.0-1.0); EOS # 0.3 10^3/uL (0.0-0.5); HEMATOCRIT 47.6 % (42.0-52.0); HEMOGLOBIN 16.4 g/dl (13.5-17.5); LYMPH # 2.1 10^3/uL (1.5-5.0); LYMPH % 19.3 % (24.0-44.0); MEAN CORPUSCULAR HEMOGLOBIN 29.6 pg (27.0-33.0); MEAN CORPUSCULAR HGB CONC 34.5 g/dl (32.0-36.5); MEAN CORPUSCULAR VOLUME 85.9 fl (80.0-96.0); MONO # 0.6 10^3/uL (0.0-0.8); MONO % 5.8 % (2.0-8.0); NEUTROPHILS # 7.7 10^3/uL (1.5-8.5); PLATELET COUNT, AUTOMATED 205 10^3/uL (150-450); RED BLOOD COUNT 5.54 10^6/uL (4.30-6.10); WHITE BLOOD COUNT 10.9 10^3/uL (4.0-10.0)
--- OUTSIDE RECORDS SUMMARY | 2021-05-01 14:59 | CCD ---
Author Author [facility] Organization [facility] Address Unknown Phone Unavailable Care Team Providers Care Crewman Armoured Personnel Carrier M113 Name Role Phone MARILYN BROWNING Unavailable Unavailable HAYNES, E HAI PA Unavailable Unavailable HAYNES, E HAI PA Unavailable Unavailable HAYNES, E HAI PA Unavailable Unavailable HAYNES, E HAI PA Unavailable Unavailable HAYNES, E HAI PA Unavailable Unavailable HAYNES, E HAI PA Unavailable Unavailable HAYNES, E HAI PA Unavailable Unavailable HAYNES, E HAI PA Unavailable Unavailable HAYNES, E HAI PA Unavailable Unavailable HAYNSE, E HAI PA Unavailable Unavailable HAYNES, E [...] is protected by Article 27-F of the [facility] Public Health law. If you continue you may have access to information: Regarding HIV / AIDS; Provided by facilities licensed or operated by the [facility] Office of Mental Health; or Provided by the [facility] Office for People With Developmental Disabilities. If such information is present, then the following [facility] mandated warning applies: This information has [...] law may result in a fine or senior living sentence or both. A general authorization for the release of medical or other information is NOT sufficient authorization for further disc losure. Allergies and Adverse Reactions Type Description Substance Reaction Status Data Source(s ) Drug allergy AZITHROMYCIN AZITHROMYCIN [facility] Propensity to adverse reactions SULFA (sulfonamide) SULFA (sulfonam [place]) [facility] Encounters Encounter Providers Location Date Indications Data Source(s ) Outpatient Attender: ALEXANDER BROWNING 04/16/2021 02:42:43 PM [facility] Outpatient Attender: ALEXANDER BROWNING 021 02:48:38 PM EDT - 03/12/2021 11:42:00 AM [facility] Patient discharged. Outpatient Attender: DIANDRA MURPHY 04:19:04 PM EDT - 02/06/2021 06:00:00 AM [facility] Patient discharged. Outpatient Attender: BECK Keys/Basil/Arias wilde/Allison 01/21/2021 08:30:00 AM EDT [facility] ([facility], ) Outpatient Attender: Carlos Covington MD 01/05 06:15:00 AM EDT - 01/05/2021 11:29:00 AM T [facility] Patient discharged. Outpatient Attender: Carlos Covington MD 12/30 06:23:16 AM EDT - 12/31/2020 08:50:00 AM [facility] Patient discharged. Outpatient Attender: BECK Keys/Basil/Arias wilde/Allison 12/09/2020 09:20:00 AM EDT [facility] ([facility], ) Outpatient Attender: HAI RODRIGUES 12:16:00 PM EDT - 10/23/2020 01:16:00 PM EDT [facility] Patient discharged. Immunizations Vaccine Date Status Description Data Source(s) COVID-19 VACCINE Moderna 10/17/2020 12:00:00 AM EDT completed NYIS Vaccine Series Complete: YESThis Data wa s Submitted to [facility] Via [employer]. COVID-19 VACCINE Moderna 09/19/2020 12:00:00 AM EDT completed NYSIIS Vaccine Series Complete: NOThis Data was Submitted to [facility] [employer]. Medications Medication Brand Name Start Date Product Form Dose Route Admi nistrative Instructions Pharmacy Instructions Status Indications Reaction Description Data Source(s) Bisacodyl 5 MG Delayed Release Oral Tablet [Dulcolax] Dulcol ax 01/21/2021 12:00:00 AM EDT active M [facility] ([facility], ) Suprep Bowel Prep Kit Suprep Bowel Prep Kit 01/21/2021 12:00:00 AM EDT active [facility] ([facility], ) Dicyclomine Hydrochloride 20 MG Oral Tablet Dicyclomine HCL 01/21/2021 12:00:00 AM EDT ORAL active [facility] ([facility], ) Insurance Providers Payer name Policy type / Coverage type Policy ID Covered constitution party ID Covered constitution party's relationship to rob Policy Rob Plan Information [facility] ACTIVE DUTY [id number] SP [id number] [facility] HUMANA - O/P [id number] 18 [id number] Problems, Conditions, and Diagnoses Code Display Name Description Problem Type Effective Dates Data Source(s) Z5321 Procedure and treatment not carried out due to patient leaving prior to being seen by health care provider Procedure and treatment not carried out due to patient leaving prior to being seen by health care provider Diagnosis 03/12/2021 11:42:00 AM EDT [facility] G4700 Insomnia, unspecified Insomnia, unspecified Diagnosis 02/05/2021 08:30:00 PM EDT [facility] R0683 Snoring Snoring Diagnosis 02/05/2021 08:30:00 PM ED T [facility] 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, right shoulder P rimary osteoarthritis, right shoulder Diagnosis 01/05/2021 06:15:00 AM EDT [facility] M7541 Impingement syndrome of right shoulder I mpingement syndrome of right shoulder Diagnosis 01/05/2021 06:15:00 AM EDT [facility] [id number] Encounter for other preprocedural examin ation Encounter for other preprocedural examination Diagnosis 12/31/2020 08:05:00 AM EDT [facility] 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, 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, right shoulder Diagnosis 10/23/2020 12:16:00 PM E DT [facility] 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, 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, right hip Diagnosis 10/23/2020 12:16:00 PM EDT [facility] Surgeries/Procedures Procedure Description Date Indications Data Source(s) Colonoscopy Flexible Proximal To Splenic Flexure W/Biopsy Si ngle/ 03/06/2021 12:00:00 AM EDT [facility] ([facility]) Colonoscopy W/ Poly 03/06/2021 12:00:00 AM EDT [facility] ([facility]) OFFICE OUTPATIENT VISIT 25 MINUTES 01/21/2021 12:00:00 AM EDT [facility] ([facility]) OFFICE OUTPATIENT NEW 45 MINUTES 12/09/2020 12:00:00 A M EDT [facility] Results ID Date Data Source [id number] 03/06/2021 07:50:00 AM EDT [facility]) Name Value Range Interpretation Code Description Data Veronica rce(s) Supporting Document(s) Surgical pathology study Laboratory test result [facility]) FINAL DIAGNOSIS A - Colon, random biopsies: [...] MD 03/09/2021 1240 ID Date Data Source [id number] 01/06/2021 07:45:00 [place] [address] OPERATIVE SUMMARYNAME: RADHA ODEN DATE OF : 2000ATTENDING PHYS: Carlos Covington MD DATE: 01/05/21 MR#: [id number] OF PROCEDURE: 01/05/2021URGEON: Carlos Covington MD.ICT SUPPORT AND TEST ENGINEERS: ZI Nagel.INDICATION FOR OPERATION:The patient is a [...] also examination under anesthesia.DESCRIPTION OF OPERATION: [address] [place] [address] OPERATIVE SUMMARYNAME: RADHA ODEN DATE OF : 2000ATTENDING PHYS: Carlos Covington MD DATE: 01/05/21 MR#: [id number] patient was met in the pre-op holding [...] will start with physicaltherapy before then. [address] [place] [address] OPERATIVE SUMMARYNAME: RADHA ODEN DATE OF : 2000ATTENDING PHYS: Carlos Covington MD DATE: 01/05/21 MR#: [id number]: Carlos Covington MD 01/05/21 09:23DT: NKECHI 01/06/21 07 :18DS: Carlos Covington MD 01/16/21 14:26 3 Name Value Range Interpretation Code Description Data Veronica rce(s) Supporting Document(s) ID Date Data Source [id number] 12/31/2020 11:49:00 AM EDT [facility] Name Value Range Interpretation Code Description Data Veronica rce(s) Supporting Document(s) SARS coronavirus 2 RNA Not Detected [facility] [place] This lab was ordered by [facility] and reported by [facility]. ID Date Data Source [id number] 12/16/2020 01:33:00 PM EDT [facility] ([facility], ) Name Value Range Interpretation Code Description Data Veronica rce(s) Supporting Document(s) C reactive protein [Mass/volume] in Serum or Plasma by High sensitivity method 0.30 mg/dL 0.00-0.30 Normal (applies to non-numeric results) [facility] ([facility], ) Erythrocyte sedimentation rate by Westergren method 3 mm/hr 0-15 Normal (applies to non-numeric results) [facility]) ID Date Data Source [id number] 12/16/2020 01:33:00 PM EDT [facility] ([facility]) Name Value Range Interpretation Code Description Data Veronica rce(s) Supporting Document(s) Folate 16.5 ng/mL Normal (applies to non-numeric resul ts) [facility] ([facility], ) FOLATE NORMAL RANGE NORMAL GREATER THAN 5.4 NG/ML INDETERMINATE 3.4-5.4 NG/ML DEFICIENT LESS THAN 3.4 NG/ML Vitamin B12 Level 414 pg/mL Normal (applies to non-numeri c results) [facility] ([facility]) VITAMIN B12 NORMAL RANGE NORMAL 247 - 911 PG/ML INDETERMINATE 211 - 246 PG/ML DEFICIENT LESS THAN 211 PG/ML ID Date Data Source [id number] 12/16/2020 01:33:00 PM EDT [facility] ([facility]) Name Value Range Interpretation Code Description Data Veronica rce(s) Supporting Document(s) IgA Serum (part of Subclasses) 222 mg/dL 90-386 N ormal (applies to non-numeric results) [facility] ([facility]) Igasub3 17.9 mg/dL 13.4-97.9 Normal (applies to non-numeric resul ts) [facility]) Igasub2 174.8 mg/dL 73.2-301.2 Normal (applies to non-numeric resu lts) [facility]) ID Date Data Source [id number] 12/16/2020 01:33:00 PM EDT [facility] ([facility]) Name Value Range Interpretation Code Description Data Veronica rce(s) Supporting Document(s) Tissue transglutaminase IgA Ab [Units/volume] in Serum Labor atory test result 0-3 Normal (applies to non-numeric results) [facility] ([facility]) Negative 0 - 3 Weak Positive 4 - 10 Positive >10 . Tissue Transglutaminase (tTG) has been identified as the endomysial antigen. Studies have demonstr- ated that endomysial IgA antibodies have over 99% specificity for gluten sensitive enteropathy. Performed at: RN - [facility] [address] [id number] Java Developer Architect: Rosalie Cruz MD, Phone: [phone] Performed at: - [facility] [address] [id number] Java Developer Architect: Carrington Quintanilla MD, Phone: [phone] ID Date Data Source [id number] 12/16/2020 01:33:00 PM EDT [facility] ([facility]) Name Value Range Interpretation Code Description Data Veronica rce(s) Supporting Document(s) Ast/Sgot 17 U/L 7-37 Normal (applies to non-numeric resul ts) [facility] ([facility]) Alt/SGPT 26 U/L 12-78 Normal (applies to non-numeric resul ts) [facility]) Alkaline Phosphatase 58 U/L 45-117 Normal (applies to non-num jessica results) [facility]) Bilirubin,Direct 0.1 mg/dL 0.0-0.2 Normal (applies to non-numeric results) [facility]) Bilirubin,Total 0.4 mg/dL 0.2-1.0 Normal (applies to non-numeric results) [facility]) Albumin 4.1 GM/DL 3.2-5.2 Normal (applies to non-numeric resul ts) [facility]) Total Protein 7.2 GM/DL 6.4-8.2 Normal (applies to non-numeric re sults) [facility]) Albumin/Globulin Ratio 1.3 Normal (applies to non-n umeric results) [facility]) ID Date Data Source [id number] 12/16/2020 01:33:00 PM EDT [facility]) Name Value Range Interpretation Code Description Data Veronica rce(s) Supporting Document(s) Glucose, Fasting 88 mg/dL 70-100 Normal (applies to non-numeric results) [facility] ([facility]) Blood Urea Nitrogen 10 mg/dL 7-18 Normal (applies to non-nume shannon results) [facility]) Creatinine For GFR 0.95 mg/dL 0.70-1.30 Normal (applies to non -numeric results) [facility] ([facility]) Sodium Level 138 meq/L 136-145 Normal (applies to non-numeric res ults) [facility]) Glomerular Filtration Rate Laboratory test result Normal (applies to non- numeric results) [facility]) <content>Units are mL/min/1.73 m2</content>
<content></content>
<content>Chronic Kidney Disease Staging per NKF:</content>
<content></content>
<content>Stage I & II GFR >=60 Normal to Mildly Decreased</content>
<content>Stage III GFR 30- 59 Moderately Decreased</content>
<content>Stage IV GFR 15-29 Severely Decreased</content>
<content>Stage V GFR <15 Very Little GFR Left</content>
<content>ESRD GFR <15 on PIG FURNACE OPERATOR</content>
<content></content> Potassium Serum 3.8 meq/L 3.5-5.1 Normal (applies to non-numeric results) [facility]) Carbon Dioxide Level 26 meq/L 21-32 Normal (applies to non-num jessica results) [facility]) Chloride Level 105 meq/L 98-107 Normal (applies to non-numeric r esults) [facility]) Anion Gap 7 meq/L 8-16 Below low normal [facility] ( [facility]) Calcium Level 8.7 mg/dL 8.5-10.1 Normal (applies to non-numeric re sults) [facility]) ID Date Data Source [id number] 12/16/2020 01:33:00 PM EDT [facility]) Name Value Range Interpretation Code Description Data Veronica rce(s) Supporting Document(s) White Blood Count 6.0 10 4.0-10.0 Normal (applies to non-numeri c results) [facility]) Red Blood Count 4.90 10 4.30-6.10 Normal (applies to non-numeric results) [facility]) Hematocrit 42.1 % 42.0-52.0 Normal (applies to non-numeric resul ts) [facility]) Hemoglobin 14.5 g/dL 13.5-17.5 Normal (applies to non-numeric resul ts) [facility]) Mean Corpuscular Volume 85.9 fl 80.0-96.0 Normal ( applies to non-numeric results) [facility] ) Mean Corpuscular HGB Conc 34.4 g/dL 32.0-36.5 Normal (applies to non-numeric results) [facility]) Mean Corpuscular Hemoglobin 29.6 pg 27.0-33.0 Norm al (applies to non-numeric results) [facility] ([facility]) Red Cell Distribution Width 12.0 % 11.5-14.5 Norm al (applies to non-numeric results) [facility]) Neutrophils % 51.5 % 36.0-66.0 Normal (applies to non-numeric re sults) [facility]) Platelet Count, Automated 176 10 150-450 Normal (applies to non-numeric results) [facility]) Eos % 3.5 % 0.0-3.0 Above high normal [facility] ([facility]) [place] % 7.7 % 2.0-8.0 Normal (applies to non-numeric resul ts) [facility]) Lymph % 36.3 % 24.0-44.0 Normal (applies to non-numeric resul ts) [facility]) Immature Granulocyte % 0.3 % 0-3.0 Normal (applies to non-n umeric results) [facility]) Baso % 0.7 % 0.0-1.0 Normal (applies to non-numeric resul ts) [facility]) Nucleated Red Blood Cell % 0.0 % 0-0 Normal (applies to n on-numeric results) [facility]) Neutrophils # 3.1 10 1.5-8.5 Normal (applies to non-numeric re sults) [facility]) Lymph # 2.2 10 1.5-5.0 Normal (applies to non-numeric resul ts) [facility]) [place] # 0.5 10 0.0-0.8 Normal (applies to non-numeric resul ts) [facility]) Eos # 0.2 10 0.0-0.5 Normal (applies to non-numeric resul ts) [facility] ([facility]) Baso # 0.0 10 0.0-0.2 Normal (applies to non-numeric resul ts) [facility]) ID Date Data Source [id number] 12/16/2020 12:00:00 PM EDT [facility]) Name Value Range Interpretation Code Description Data Veronica rce(s) Supporting Document(s) Gastrointestinal (GI) Panel Laboratory test result [facility] ([facility]) This Gastrointestinal PCR Panel detects the following [...] NUCLEIC ACID PCR ID Date Data Source [id number] 12/16/2020 12:00:00 PM EDT [facility] ([facility]) Name Value Range Interpretation Code Description Data Veronica rce(s) Supporting Document(s) Fats Neutral Laboratory test result Normal (applies to non -numeric results) [facility] ([facility]) <content>Normal (<60 Droplets/HPF)</cont ent>
<content></content> Fats Total Laboratory test result Normal (applies to non-n umeric results) [facility] ([facility]) <content>Normal (<100 Droplets/HPF)</con tent>
<content></content> ID Date Data Source [id number] 12/16/2020 12:00:00 PM EDT [facility] Name Value Range Interpretation Code Description Data Veronica rce(s) Supporting Document(s) Lactoferrin [Presence] in Stool by Immunoassay Laboratory test r esult Abnormal (applies to non-numeric results) [facility] ([facility]) Calprotectin [Mass/mass] in Stool 122 ug/g 0-120 Above high no rmal [facility] ([facility]) <content>Concentration Interpretatio n Follow-Up</content>
<content><16 - 50 ug/g Normal None</content>
<content>>50 -120 ug/g Borderline Re-evaluate in 4-6 weeks</content>
<content>>120 ug/g Abnormal Repeat as clinically</content>
<content>indicated</content>
<content></content> Helicobacter pylori Ag [Presence] in Stool Laboratory test resul t Normal (applies to non-numeric results) [facility] Performed at: [facility] [id number] Java Developer Architect: Rosalie Cruz MD, Phone: [phone] Performed at: [facility] [address] [id number] Java Developer Architect: Carrington Quintanilla MD, Phone: [phone] Elastase.pancreatic [Mass/mass] in Stool Laboratory test result Normal (applies to non-numeric results) [facility] <content>Result Units: ug Elast./g</cont ent>
<content>Severe Pancreatic Insufficiency: <100</content>
<content>Moderate Pancreatic Insufficiency: 100 - 200</content>
<content>Normal: >200</content>
<content></content> ID Date Data Source [id number] 10/24/2020 10:30:00 [place] [address] PHONE: [phone] FAX: [phone] Name .................. : RADHA ODEN Acct Number.................. : [id number] ROOM. ................. : MR Number ................... : [id number] Stay type ............. : O/P Discharge Date......... ... : 10/23/20 Admit Date ......... : 10/23/20 Admit Phys .................... : DALLAS IVEY Date of ....... : 2000 Family Phys ................... : UNKNOWN CO Phone .................. : [phone] Age ................................ : 20 Film# .................. .:[id number] Sex ................................. : M Unsigned transcriptions are preliminary reports and do not represent a medical or legal document INJECTION FOR SHOULDER ARTHRO [id number] COMPLETE:10/23/20 09:58 KBO 33370 Reason for Exam: R SHOULDER PAIN SHOULDER [address] RT [id number] COMPLETE:10/23/20 09:58 KBO 41328 Reason for Exam: R SHOULDER PAIN FLUOROSCOPIC EXAMINATION OF THE RIGHT SHOULDER FOR ARTHROGRAM: FINDINGS: The traveling freight agent film shows no acute findings. PROCEDURE: The [...] of this dictation. Page 1 of 2 [place] [address] PHONE: [phone] FAX: [phone] Name .......... ........ : RADHA ODEN Acct Number.................. : [id number] ROOM. ................. : Number ................... : [id number] Stay type ............. : O/P Discharge Date......... ... : 10/23/20 Admit Date ......... : 10/23/20 Admit Phys .................... : DALLAS IVEY Date of ....... : 2000 Family Phys ................... : UNKNOWN CO Phone .................. : [phone] Age ................................ : 20 Film# .................. .:[id number] Sex ................................. : M Unsigned transcriptions are preliminary reports and do not represent a medical or legal document INJECTION FOR SHOULDER ARTHRO [id number] COMPLETE:10/23/20 09:58 KBO 98329 Reason for Exam: R SHOULDER PAIN SHOULDER 1 [address] RT [id number] COMPLETE:10/23/20 09:58 KBO 62977 Reason for Exam: R SHOULDER PAIN Electronically Reviewed and Signed By Ras Askew MD , 10/24/20 10:31, AML Transcribe Initials: SHANAE , Transcribe Date: 10/24/20 00:47, Dictation Date: Copy for: DALLAS VALLES Copy for: [address] [place] [address] REC Page 2 of 2 Name Value Range Interpretation Code Description Data Veronica rce(s) Supporting Document(s) ID Date Data Source [id number] 10/24/2020 10:29:00 AM EDT [facility] [address] [place] [address] PHONE: [phone] FAX: [phone] Name .................. : RADHA ODEN Acct Number.................. : [id number] ROOM. ................. : Number ................... : [id number] Stay type ............. : O/P Discharge Date......... ... : Admit Date ......... : Admit Phys .................... : DALLAS IVEY Date of ....... : 2000 Family Phys ................... : UNKNOWN CO Phone .................. : [phone] Age ................................ : 20 Film# .................. .:[id number] Sex ................................. : M Unsigned transcriptions are preliminary reports and do not represent a medical or legal document MRI UPPER EXT JOINT W CONT RT [id number] COMPLETE:10/23/20 09:11 [id number] Reason for Exam: R SHOUL ARELIS PAIN [...] Copy for: DALLAS VALLES Copy for: [address] [place] [address] REC Page 1 of 1 Name Value Range Interpretation Code Description Data Veronica rce(s) Supporting Document(s) ID Date Data Source [id number] 10/24/2020 10:30:00 AM EDT [facility] [address] [place] [address] PHONE: [phone] FAX: [phone] Name .................. : RADHA ODEN Acct Number.................. : [id number] ROOM. ................. : MR Number ................... : [id number] Stay type ............. : O/P Discharge Date......... ... : 10/23/20 Admit Date ......... : 10/23/20 Admit Phys .................... : DALLAS IVEY Date of ....... : 2000 Family Phys ................... : UNKNOWN CO Phone .................. : [phone] Age ................................ : 20 Film# .................. .:[id number] Sex ................................. : M Unsigned transcriptions are preliminary reports and do not represent a medical or legal document INJECTION FOR SHOULDER ARTHRO [id number] COMPLETE:10/23/20 09:58 KBO 41893 Reason for Exam: R SHOULDER PAIN SHOULDER 1 VIEW RT [id number] COMPLETE:10/23/20 09:58 KBO 71369 Reason for Exam: R SHOULDER PAIN FLUOROSCOPIC EXAMINATION OF THE RIGHT SHOULDER FOR ARTHROGRAM: FINDINGS: The traveling freight agent film shows no acute findings. PROCEDURE: The [...] of this dictation. Page 1 of 2 [place] [address] PHONE: [phone] FAX: [phone] Name .......... ........ : RADHA ODEN Acct Number.................. : [id number] ROOM. ................. : MR Number ................... : [id number] Stay type ............. : O/P Discharge Date......... ... : 10/23/20 Admit Date ......... : 10/23/20 Admit Phys .................... : DALLAS IVEY Date of ....... : 2000 Family Phys ................... : UNKNOWN CO Phone .................. : [phone] Age ................................ : 20 Film# .................. .:[id number] Sex ................................. : M Unsigned transcriptions are preliminary reports and do not represent a medical or legal document INJECTION FOR SHOULDER ARTHRO [id number] COMPLETE:10/23/20 09:58 KBO 54669 Reason for Exam: R SHOULDER PAIN SHOULDER 1 VIEW RT [id number] COMPLETE:10/23/20 09:58 KBO 08219 Reason for Exam: R SHOULDER PAIN Electronically Reviewed and Signed By Ras Askew MD , 10/24/20 10:31, AML Transcribe Initials: DZ , Transcribe Date: 10/24/20 00:47, Dictation Date: Copy for: DALLAS VALLES Copy for: Tom [facility] REC Page 2 of 2 Name Value Range Interpretation Code Description Data Veronica rce(s) Supporting Document(s) ID Date Data Source [id number] 08/25/2020 10:03:00 AM EDT [facility] Name Value Range Interpretation Code Description Data Veronica rce(s) Supporting Document(s) SARS coronavirus 2 RNA Not Detected [facility] This lab was ordered by [facility] and reported by [facility]. Procedure Social History No Information Vital Signs ID Date Data Source UNK Name Value Range Interpretation Code Description Data Source(s) Body weight 86.184 kg 86.184 kg [facility] ([facility], ) Diastolic blood pressure 74 mm[Hg] 74 mm[Hg] [facility] ([facility]) Body surface area Derived from formula 1.96 m2 1.96 m2 [facility] ([facility]) Systolic blood pressure 132 mm[Hg] 132 mm[Hg] [facility] Body height 66 [in_i] 66 [in_i] [facility] ([facility]) 5'6" Body weight 190.00 [lb_av] 190.00 [lb_av] [facility] ([facility]) Body mass index (BMI) [Ratio] 30.7 kg/m2 30.7 k g/m2 [facility] ([facility]) [place] body weight 142 [lb_av] 142 [lb_av] [facility] ([facility]) [place] body weight 142 [lb_av] 142 [lb_av] [facility] ([facility]) Systolic blood pressure 132 mm[Hg] 132 mm[Hg] [facility] Body mass index (BMI) [Ratio] 30.7 kg/m2 30.7 k g/m2 [facility] ([facility]) Body surface area Derived from formula 1.96 m2 1.96 m2 [facility] ([facility]) Body weight 86.184 kg 86.184 kg [facility] ([facility]) Diastolic blood pressure 74 mm[Hg] 74 mm[Hg] [facility] ([facility]) Body height 66 [in_i] 66 [in_i] [facility] ([facility]) 5'6" Body weight 190.00 [lb_av] 190.00 [lb_av] [facility] ([facility]) ID Date Data Source [id number] 02/12/2021 02:24:54 PM EDT [facility] Name Value Range Interpretation Code Description Data Source(s) WEIGHT RECORDED 190.00 pounds 190.00 pounds [facility] Height 66 Inches 066 Inches [facility]
[2021-05-01] MEDS ORDERED: MUCI60TA7 PO (15:16)
[2021-05-01 15:36] VITALS: BP 117/62
== END 2021-05-01 15:40 | disposition home or self-care (01) ==
LOC: M ED 09:52
DX: R09.89 Other specified symptoms and signs involving the circulatory and respiratory systems (principal); B97.4 Respiratory syncytial virus as the cause of diseases classified elsewhere; K21.9 Gastro-esophageal reflux disease without esophagitis; F17.200 Nicotine dependence, unspecified, uncomplicated; Z79.899 Other long term (current) drug therapy; Z88.1 Allergy status to other antibiotic agents; Z88.2 Allergy status to sulfonamides; Z98.890 Other specified postprocedural states

== ENCOUNTER → 2021-08-10 | Outpatient (REF) ==
[~2021-08-10] MED LIST changes: +LUNE2TAB23 PO; +MUCI60TA7 PO
== END ==
LOC: M PLALAB 09:13
PROVIDERS: ATTEND Internal Medicine
DX: Z00.00 Encounter for general adult medical examination without abnormal findings (principal)